=== PATIENT | male | born 1940 | race Caucasian/White ===

== ENCOUNTER → 2017-02-15 | Outpatient (CLI) | payer MEDICARE | LOC: COL.RAD 08:25 | DX: Z13.6 Encounter for screening for cardiovascular disorders (principal); I77.811 Abdominal aortic ectasia; I70.0 Atherosclerosis of aorta; Z87.891 Personal history of nicotine dependence ==

== ENCOUNTER → 2020-10-14 | Outpatient (REF) | LOC: ZCOL.LAB 17:38 | DX: M79.675 Pain in left toe(s) (principal) ==

== ENCOUNTER → 2024-01-24 | Outpatient (CLI) | payer MEDICARE | LOC: COL.VAS 10:22 | DX: I08.0 Rheumatic disorders of both mitral and aortic valves (principal) ==